=== PATIENT | male | born 1955 | race Caucasian/White ===

== ENCOUNTER 2023-09-02 17:50 | Emergency (ER) | payer SELFPAY ==
[~2023-09-02] VITALS: Ht 167.6 cm; Wt 82.0 kg
[2023-09-02 17:55] VITALS: BP 110/54; PULSE 70; RESP 16; TEMP 98.7; O2SAT 100
[2023-09-02] MEDS ORDERED: LORAZEPAM 2MG/ML CPJ IV ONE (18:15)
== END 2023-09-02 18:22 | disposition home or self-care (01) ==
LOC: ER 17:50
DX: F10.129 Alcohol abuse with intoxication, unspecified (principal); Y90.0 Blood alcohol level of less than 20 mg/100 ml
CPT/HCPCS: 99283